=== PATIENT | male | born 1955 | race Caucasian/White ===

== ENCOUNTER → 2017-01-09 | Outpatient (CLI) | payer BC ==
[~2017-01-09] MED LIST: ASPIR 8181 MG PO; COLACE 100MG C100 MG PO; LISINOPRIL-HCT1 EAC1 PO; NORCO 7.5-3251 EACH PO; SIMVASTATIN20 MG PO
[2017-01-09 08:55] LABS: BUN/CREATININE RATIO 17 (0-10)
== END ==
LOC: OPSV2 07:44
PROVIDERS: Anesthesiology
DX: Z01.818 Encounter for other preprocedural examination (principal); Z01.810 Encounter for preprocedural cardiovascular examination; K40.90 Unilateral inguinal hernia, without obstruction or gangrene, not specified as recurrent; I10 Essential (primary) hypertension; Z79.899 Other long term (current) drug therapy
CPT/HCPCS: 36415; 80048; 93005

== ENCOUNTER → 2017-01-17 | Day surgery (SDC) | payer BC | END | disposition home or self-care (01) | LOC: OR 06:23 | PROVIDERS: Surgery | PROC: 0YQ50ZZ Repair Right Inguinal Region, Open Approach (ICD-10-PCS; principal; 2017-01-17 07:30) | DX: K40.90 Unilateral inguinal hernia, without obstruction or gangrene, not specified as recurrent (principal); I10 Essential (primary) hypertension; E66.9 Obesity, unspecified; Z68.39 Body mass index [BMI] 39.0-39.9, adult; Z86.69 Personal history of other diseases of the nervous system and sense organs; Z87.891 Personal history of nicotine dependence; Z82.49 Family history of ischemic heart disease and other diseases of the circulatory system; Z79.82 Long term (current) use of aspirin; Z79.899 Other long term (current) drug therapy; Z98.890 Other specified postprocedural states | CPT/HCPCS: J0690; J1100; J1885; J2250; J2405; J2710; J2765; J3010; J7120 ==

== ENCOUNTER → 2021-03-26 | Outpatient (CLI) | payer BC ==
[~2021-03-26] MED LIST changes: +CEPHALEXIN500 MG PO; +FEOSOL325 MG PO; +HYZAAR 100-251 EACH PO; +LASIX40 MG PO; +LOSARTAN POTASS25 MG PO; +MONODOX100 MG PO; +PROTONIX40 MG PO; +SYNTHROID75 MCG PO; +TOPROL XL25 MG PO; +VITAMIN B-122500 MCG SL; +ZOCOR20 MG PO
== END ==
LOC: KOH-I 11:34
DX: M25.511 Pain in right shoulder (principal); R22.30 Localized swelling, mass and lump, unspecified upper limb; M19.011 Primary osteoarthritis, right shoulder
CPT/HCPCS: 73030

== ENCOUNTER → 2021-03-30 | Outpatient (CLI) | payer BC | LOC: US 14:30 | DX: R22.31 Localized swelling, mass and lump, right upper limb (principal) | CPT/HCPCS: 76882 ==

== ENCOUNTER → 2021-04-09 | Outpatient (CLI) | payer BC | LOC: KOH-I 04-06 09:45 | DX: M25.511 Pain in right shoulder (principal) | CPT/HCPCS: 73221 ==

== ENCOUNTER → 2022-04-04 | Outpatient (CLI) | payer OTHER ==
[~2022-04-04] MED LIST changes: +OMEGA 3 1,0001 EACH PO
== END ==
LOC: LAB 10:23
DX: Z20.822 Contact with and (suspected) exposure to COVID-19 (principal)
CPT/HCPCS: U0003

== ENCOUNTER → 2022-04-06 | Day surgery (SDC) | payer OTHER | END | disposition home or self-care (01) | LOC: OR 07:07 | DX: Z12.11 Encounter for screening for malignant neoplasm of colon (principal); D12.2 Benign neoplasm of ascending colon; K57.30 Diverticulosis of large intestine without perforation or abscess without bleeding; K64.1 Second degree hemorrhoids; I10 Essential (primary) hypertension; Z79.899 Other long term (current) drug therapy | CPT/HCPCS: J2704; J7040 ==